=== PATIENT | male | born 1970 | race Hispanic/Latino ===

== ENCOUNTER 2018-01-02 18:24 | Emergency (ER) | payer SELFPAY ==
--- NOTE | 2018-01-02 20:02 | RAD ---
FOUR VIEWS OF THE RIGHT KNEE: 01/02/18 HISTORY: Kicked by a cow in the right knee with right knee pain. FINDINGS: Four views of the right knee shows no evidence of acute fracture or dislocation. No knee effusion is seen. Patellar enthesophytes are incidentally seen. IMPRESSION: No evidence of acute osseous abnormality. POS: [facility]
== END 2018-01-02 20:24 | disposition home or self-care (01) ==
LOC: MADERS 18:24
DX: S83.411A Sprain of medial collateral ligament of right knee, initial encounter (principal); W55.22XA Struck by cow, initial encounter

== ENCOUNTER 2020-05-05 09:20 | Outpatient (CLI) | payer SELFPAY ==
--- NOTE | 2020-05-05 10:40 | ULT ---
US Soft Tissue Other History: Mass Comparison: None. Findings: Real-time grayscale and color evaluation of the right inferior region of the jaw was perfor med. Corresponding to the palpable mass inferior aspect right lobe of the year is a large hypoechoic wider than tall mass measuring up to 5.6 cm in size. This may reflect an enlarged submandibular salivary gland versus lymph node. Impression: Either abnormally enlarged salivary gland versus lymph node of the right jaw for which CT of the neck with contrast recommended.
== END 2020-05-05 09:21 | disposition home or self-care (01) ==
LOC: MADULT 09:20
PROVIDERS: ATTEND Family Medicine
DX: R22.1 Localized swelling, mass and lump, neck (principal)
CPT/HCPCS: 76999

== ENCOUNTER 2020-09-10 20:05 | Emergency (ER) | payer SELFPAY | END 2020-09-10 20:41 | disposition home or self-care (01) | LOC: MADERS 20:05 | DX: H60.91 Unspecified otitis externa, right ear (principal) | CPT/HCPCS: 69210 ==

== ENCOUNTER 2021-09-18 23:32 | Emergency (ER) | payer SELFPAY ==
[~2021-09-18 23:32] MED LIST: Iopamidol 370 76% 100 ML VIAL ONE
[2021-09-19 00:38] LABS: #Basophils 0.1 thou/uL (0.0-0.2); #Eosinphils 0.1 thou/uL (0.0-0.7); #Lymphocytes 2.4 thou/uL (1.20-3.40); #Neutrophils 3.7 thou/uL (1.40-6.50); %Eosinophils 1.8 % (0.0-10.0); %Lymphocytes 32.5 % (21.0-51.0); %Monocytes 13.6 % (0.0-10.0); %Neutrophils 51.2 % (42.0-75.0); Hemoglobin 13.7 g/dL (14.0-18.0); Mean Corpuscular HGB CONC 33.7 g/dL (32.0-36.0); Mean Corpuscular Hemoglobin 28.3 pg (27.0-31.0); Mean Corpuscular Volume 84.1 fL (78.0-98.0); Mean Platelet Volume 10.3 fL (7.4-10.4); Platelet Count 169 thou/uL (130-400); RBC Distribution Width 12.3 % (11.5-14.5); Red Blood Cell (RBC) Count 4.85 mill/uL (4.70-6.10); White Blood Cell (WBC) Count 7.3 thou/uL (4.8-10.8)
[2021-09-19 00:42] LABS: ALT (SGPT) 31 U/L (8-55); AST (SGOT) 21 U/L (5-34); Alkaline Phosphatase 113 U/L (40-110); Anion Gap 15 mmol/L (10-20); BUN (Urea Nitrogen) 12 mg/dL (8.4-25.7); Bilirubin, Total 0.6 mg/dL (0.2-1.2); Calc. Creatinine Clearance 0 mL/min (70-130); Calcium 9.3 mg/dL (7.8-10.44); Carbon Dioxide 24 mmol/L (22-29); Chloride 105 mmol/L (98-107); Globulin 3.7 g/dL (2.4-3.5); Glucose 242 mg/dL (70-105); Potassium 3.7 mmol/L (3.5-5.1); Protein, Total 7.7 g/dL (6.0-8.3); Sodium 140 mmol/L (136-145)
== END 2021-09-19 02:10 | disposition home or self-care (01) ==
LOC: MADERS 23:32
DX: R22.1 Localized swelling, mass and lump, neck (principal); E11.9 Type 2 diabetes mellitus without complications
CPT/HCPCS: 70491; 80053; 85025; Q9967